=== PATIENT | female | born 1995 | race Caucasian/White ===

== ENCOUNTER 2017-01-19 | Emergency (ER) | payer OTHER ==
[2017-01-19 00:11] VITALS: BP 125/65; PULSE 92; TEMP 98.2; BMI 30.1
[2017-01-19] MEDS ORDERED: IBUPROFEN 400 MG TABLET (FP) PO ONE ×2 (01:50→02:19)
--- NOTE | 2017-01-19 02:00 | PDOC ---
History of Present Illness - General History Source: Patient Exam Limitations: No Limitations - History of Present Illness Initial Comments: 01/19/17 05:03 The patient is a 21 year old female with no significant past medical history who presents to the ED for right ankle swelling and pain s/p mechanical fall on wednesday. Patient reports she was walking when she tripped over a curb, sustaining a small bruise, swelling, and increasing pain to the right ankle. Denies head trauma or LOC. Patient denies loss of sensation or paresthesia of the right ankle/foot. Denies any radiation of the pain. The patient denies fever, chills, cough, SOB, chest pain, and palpitations. The patient denies abdominal pain, nausea, vomiting, and diarrhea. Allergies: NKDA Social History: No alcohol, tobacco, or drug use reported. Past Surgical History: None reported PCP: Dr. Preston Moreira <Brissa Laureano - Last Filed: 01/19/17 05:03> <Dalton Anderson - Last Filed: 01/21/17 07:32> - General Chief Complaint: Injury Stated Complaint: FALL/INJURY Time Seen by Provider: 01/19/17 01:50 Past History <Brissa Laureano - Last Filed: 01/19/17 05:03> - Past Medical History Other medical history: denies - Psycho/Social/Smoking Cessation Hx Suicidal Ideation: No Smoking Status: No Smoking History: Never smoked Number of Cigarettes Smoked Daily: 0 <Dalton Anderson - Last Filed: 01/21/17 07:32> - Past Medical History Allergies/Adverse Reactions: Allergies Allergy/AdvReac Type Severity Reaction Status Date / Time No Known Allergies Allergy Verified 01/19/17 00:10 Home Medications: Ambulatory Orders NK [No Known Home Medication] 01/19/17 Review of Systems - Review of Systems Able to Perform ROS?: Yes Comments:: 01/19/17 05:03 Constitutional - Pt denies Fever, Chills, weakness, HEENT: denies vision changes, sore throat Musculskelatal - +swelling and pain of the right ankle and foot denies back pain skin - denies bruising, erythema, rash neurological: denies headache, numbness, focal weakness, tingling, ataxia, weakness <Brissa Laureano - Last Filed: 01/19/17 05:03> *Physical Exam - Vital Signs Last Vital Signs Temp Pulse Resp BP Pulse Ox 98.2 F 92 H 18 125/65 99 01/19/17 00:08 01/19/17 00:08 01/19/17 00:08 01/19/17 00:08 01/19/17 00:08 - Physical Exam Comments: 01/19/17 05:04 GENERAL: The patient is awake, alert, and fully oriented, Nontoxic - in no acute distress. HEAD: Normocephalic, atraumatic. EYES: extraocular movements intact, sclera anicteric, conjunctiva clear. ENT: Normal voice, Moist mucous membranes. NECK: Normal range of motion, supple without lymphadenopathy, JVD, or masses. EXTREMITIES: Decreased ROM of the right ankle secondary to pain. Diffuse mild tenderness around the right ankle later/medial malleolus and dorsum of right foot. Abrasion at the dorsum of the right foot with surrounding erythema, no warmth, induration, or discharge. No deformity. normal ROM of knee/hips and other extremities. NEUROLOGICAL: No facial assymetry, Normal speech. moving all 4 extremities spontaneously and symmetrically SKIN: Warm, Dry, normal turgor, no rashes noted. <Brissa Laureano - Last Filed: 01/19/17 05:03> - Vital Signs Last Vital Signs Temp Pulse Resp BP Pulse Ox 98.2 F 92 H 18 125/65 99 01/19/17 00:08 01/19/17 00:08 01/19/17 00:08 01/19/17 00:08 01/19/17 00:08 <Dalton Anderson - Last Filed: 01/21/17 07:32> ED Treatment Course - ADDITIONAL ORDERS Additional order review: Laboratory Results 01/19/17 01:50 Urine HCG, Qual Negative - Medications Given in the ED: ED Medications Discontinued Medications Generic Name Dose Route Start Last Admin Trade Name Freq PRN Reason Stop Dose Admin Ibuprofen 400 mg 01/19/17 01:50 01/19/17 02:22 Motrin - PO 01/19/17 01:51 400 mg ONCE ONE Administration <Brissa Laureano - Last Filed: 01/19/17 05:03> - RADIOLOGY Radiology Studies Ordered: Category Date Time Status ANKLE & FOOT-RIGHT* [RAD] Stat Radiology 01/19/17 01:52 Ordered <Dalton Anderson - Last Filed: 01/21/17 07:32> Medical Decision Making - Medical Decision Making 01/19/17 02:00 21y F presnting with R ankle pain suspect sprain, diffuse tenderness will r/o fx with xray will give motrin for pain. A portion of this note was documented by scribe services under my direction. I have reviewed the details of the note, within reason, and agree with the documentation with the following case summary and management plan written by me 01/19/17 02:45 no fx on xray will put in seema wrap RICE therapy motring/tylenol for pain will dc with pmd fu return precautions were discussed I discussed the physical exam findings, ancillary test results and final diagnoses with the patient. I answered all of the patient's questions. The patient was satisfied with the care received and felt comfortable with the discharge plan and treatment plan. The patient will call their primary care physician within 24 hours to arrange follow-up and will return to the Emergency Department with any new, persistent or worsening symptoms. <Dalton Anderson - Last Filed: 01/21/17 07:32> *DC/Admit/Observation/Transfer - Attestations Scribe Attestion: 01/19/17 05:04 Documentation prepared by Brissa Laureano, acting as medical director occupational health for Dalton Anderson MD, /DO. <Brissa Laureano - Last Filed: 01/19/17 05:03> - Discharge Dispostion Admit: No <Dalton Anderson - Last Filed: 01/21/17 07:32> Diagnosis at time of Disposition: Sprained ankle Qualifiers: Encounter type: initial encounter Involved ligament of ankle: unspecified ligament Laterality: left Qualified Code(s): S93.402A - Sprain of unspecified ligament of left ankle, initial encounter - Discharge Dispostion Disposition: HOME Condition at time of disposition: Improved - Referrals Referrals: Preston Moreira [Primary Care Provider] - - Patient Instructions Printed Discharge Instructions: DI for Ankle Sprain Additional Instructions: Return to the emergency department immediately with ANY new, persistent or worsening symptoms. Keep your extremity elevated. Apply ice to reduce swelling. Take ibuprofen for pain. Refrained from physical activity until reassessed. You MUST call and follow up with your doctor in 3-4 days for further evaluation of your symptoms. Results were discussed with you. Please make sure your doctor reviews the results of your emergency evaluation. If you had any xrays during your visit, it was read preliminarily by myself, a Radiologist will review it and if there are any additional findings we will call you. Print Language: [place]
== END 2017-01-19 03:33 | disposition home or self-care (01) ==
LOC: JER
DX: S93.402A Sprain of unspecified ligament of left ankle, initial encounter (principal); W10.1XXA Fall (on)(from) sidewalk curb, initial encounter; Y93.01 Activity, walking, marching and hiking; Y92.480 Sidewalk as the place of occurrence of the external cause
CPT/HCPCS: 73610-TC-RT; 73630-TC-RT; 84703; 99282-25

== ENCOUNTER 2018-07-04 22:24 | Emergency (ER) | payer OTHER ==
[2018-07-04 22:35] VITALS: BP 119/72; PULSE 92; TEMP 98.8; BMI 24.7
[2018-07-05] MEDS ORDERED: SODIUM CHLORIDE 1,000 ML IV STA (02:09)
[2018-07-05] MEDS ORDERED: ACETAMINOPHEN 1000 MG/100 ML VIAL (NON FORMULARY) IVPB ONE (02:09)
--- NOTE | 2018-07-05 02:10 | PDOC ---
History of Present Illness - General Chief Complaint: Pain Stated Complaint: ABDOMINAL PAIN Time Seen by Provider: 07/05/18 01:28 History Source: Patient Exam Limitations: No Limitations - History of Present Illness Initial Comments: 07/05/18 05:51 23 yo F with a hx of gastric sleeve placement (01/2018) presents to the emergency department with LLQ pain that radiates to the RUQ for the past 1.5 weeks. Per the patient, the pain is described as dull, 10/10, without relief and aggravating factors. Denies the following: fevers, nausea, vomiting, chills , dysuria, hematuria, diarrhea, vaginal bleeding/discharge, and hematochezia. Endorses constipation with last full BM was 3 days ago. Past History - Past Medical History Allergies/Adverse Reactions: Allergies Allergy/AdvReac Type Severity Reaction Status Date / Time No Known Allergies Allergy Verified 07/04/18 22:36 Home Medications: Ambulatory Orders NK [No Known Home Medication] 01/19/17 COPD: No - Surgical History Abdominal Surgery: Yes (SLEEVE) - Suicide/Smoking/Psychosocial Hx Smoking Status: No Smoking History: Never smoked Number of Cigarettes Smoked Daily: 0 Review of Systems - Review of Systems Able to Perform ROS?: Yes Constitutional: No: Chills, Diaphoresis, Fever, Weakness HEENTM: No: Eye Pain, Recent change in vision, Ear Pain, Nose Pain, Throat Pain , Mouth Pain Respiratory: No: Cough, Shortness of Breath, Hemoptysis Cardiac (ROS): No: Chest Pain, Lightheadedness, Palpitations, Syncope, Chest Tightness ABD/GI: Yes: Constipated, Abdominal cramping. No: Diarrhea, Difficulty Swallowing, Nausea, Poor Appetite, Poor Fluid Intake, Rectal Bleeding, Vomiting , Indigestion, Tarry Stools : No: Burning, Dysuria, Hematuria, Urgency Musculoskeletal: No: Back Pain, Joint Pain, Neck Pain Integumentary: No: Lesions, Lumps, Rash Neurological: No: Headache, Numbness, Tremors, Ataxia, Dizziness Psychiatric: No: Stressors Endocrine: No: Unexplained Weight Gain Hematologic/Lymphatic: No: Anemia *Physical Exam - Vital Signs Last Vital Signs Temp Pulse Resp BP Pulse Ox 98.8 F 92 H 18 119/72 98 07/04/18 22:32 07/04/18 22:32 07/04/18 22:32 07/04/18 22:32 07/04/18 22:32 - Physical Exam General Appearance: Yes: Nourished, Appropriately Dressed. No: Apparent Distress, Intoxicated HEENT: positive: EOMI, JAG, Normal Voice, Symmetrical, Pharynx Normal, Hearing Grossly Normal. negative: Pale Conjunctivae, Scleral Icterus (R), Scleral Icterus (L), Muffled/Hoarse voice, Pharyngeal Erythema, Tonsillar Exudate, Tonsillar Erythema, Nasal Congestion, Rhinorrhea, Excessive drooling Neck: positive: Trachea midline. negative: Tender, Lymphadenopathy (R), Lymphadenopathy (L) Respiratory/Chest: positive: Lungs Clear, Normal Breath Sounds. negative: Chest Tender, Respiratory Distress, Accessory Muscle Use, Crackles, Rales, Rhonchi, Stridor, Wheezing Cardiovascular: positive: Regular Rhythm, Regular Rate, S1, S2. negative: Systolic Murmur Gastrointestinal/Abdominal: positive: Normal Bowel Sounds, Tender (left upper quadrant, left lower quadrant. negative rebound. negative murphys), Flat, Soft Lymphatic: negative: Adenopathy Musculoskeletal: positive: Normal Inspection. negative: CVA Tenderness, Vertebral Tenderness Extremity: positive: Normal Capillary Refill, Normal Inspection, Normal Range of Motion. negative: Tender Integumentary: positive: Normal Color, Dry, Warm Neurologic: positive: home attendant II-XII NML intact, Fully Oriented, Alert, Normal Mood/ Affect, Normal Response, Motor Strength 5/5. negative: EOM Palsy, Sensory Deficit Moderate Sedation - Procedure Monitoring Vital Signs: Procedure Monitoring Vital Signs Temperature 98.8 F 07/04/18 22:32 Pulse Rate 92 H 07/04/18 22:32 Respiratory Rate 18 07/04/18 22:32 Blood Pressure 119/72 07/04/18 22:32 O2 Sat by Pulse Oximetry (%) 98 07/04/18 22:32 ED Treatment Course - LABORATORY CBC & Chemistry Diagram: 07/05/18 02:48 07/05/18 02:48 - RADIOLOGY Radiology Studies Ordered: Category Date Time Status ABDOMEN & PELVIS CT WITH CONTR [CT] Stat CT Scan 07/05/18 02:09 Ordered Medical Decision Making - Medical Decision Making 23 yo F with a hx of gastric sleeve placement (01/2018) presents to the emergency department with LLQ pain that radiates to the RLQ for the past 1.5 weeks. Initial vitals; Initial Vital Signs Temp Pulse Resp BP Pulse Ox 98.8 F 92 H 18 119/72 98 07/04/18 22:32 07/04/18 22:32 07/04/18 22:32 07/04/18 22:32 07/04/18 22:32 Work up: patient's physical exam had minimal tenderness. patient stated she did not want a pelvic exam. benefits of the exam explained and patient continued to deny. ddx: colitis vs ovarian cyst vs ectopic vs diverticulosis/ diverticulitis vs constipation vs UTI vs nephrolithiasis vs pyelo Laboratory Tests 07/05/18 07/05/18 07/05/18 02:48 02:48 02:48 WBC 7.5 RBC 5.02 Hgb 12.6 Hct 37.4 MCV 74.5 L MCH 25.2 L MCHC 33.8 RDW 14.8 Plt Count 301 MPV 8.3 Absolute Neuts (auto) 5.2 Neutrophils % 70.1 Lymphocytes % 17.7 Monocytes % 9.7 Eosinophils % 1.8 Basophils % 0.7 Nucleated RBC % 0 Sodium 141 Potassium 3.4 L Chloride 109 H Carbon Dioxide 24 Anion Gap 8 BUN 13 Creatinine 0.5 L Creat Clearance w eGFR > 60 Random Glucose 88 Calcium 8.3 L Total Bilirubin 0.4 AST 19 ALT 29 Alkaline Phosphatase 76 Total Protein 6.7 Albumin 3.6 Urine Color Yellow Urine Appearance Clear Urine pH 5.0 Ur Specific [place] 1.027 Urine Protein 1+ H Urine Glucose (UA) Negative Urine Ketones Trace H Urine Blood 1+ H Urine Nitrite Negative Urine Bilirubin Negative Urine Urobilinogen 2.0 H Ur Leukocyte Esterase Negative Urine WBC (Auto) 1 Urine RBC (Auto) 77 Ur Epithelial Cells Rare Urine Bacteria Rare Hyaline Casts 2 Urine Mucus Many Urine HCG, Qual Negative CT abdomen pelvis was significant for left ovarian cyst. patient was given follow up recommendations with OBGYN. at the time of discharge, she had stable vitals and her pain improved significantly. I discussed the physical exam findings, ancillary test results, and final diagnoses with the patient. I answered all of the patients questions to their satisfaction. The patient was satisfied with the care received and felt comfortable with the discussed discharge and treatment plan and accepted it. They agreed to follow up with their primary medical physical physician within 24 -72 hours after discharge for follow up care and management. Dispo: Discharge *DC/Admit/Observation/Transfer Diagnosis at time of Disposition: Left ovarian cyst - Discharge Dispostion Disposition: HOME Condition at time of disposition: Stable Decision to Admit order: No - Referrals Referrals: Preston Moreira [Primary Care Provider] - Christian Álvarez MD [Staff Physician] - - Patient Instructions Printed Discharge Instructions: DI for Ovarian Cyst Additional Instructions: you were seen in the emergency department for the evaluation of your left lower quadrant pain. your labs were within normal limits. your imaging showed a left ovarian cyst. please follow up with your primary medical doctor within 72 hours after discharge for follow up care and management. please follow up with your own OBGYN physician or the one referred to you within 1 week for follow up care and management. please take tylenol as directed on the label when needed for pain. please return to the emergency department if you have worsening symptoms or new concerning symptoms such as change in quality to abdominal pain, uncontrollable nausea and vomiting, and fever/chills. thank you - Post Discharge Activity Forms/Work/School Notes: Back to Work
[2018-07-05] MEDS ORDERED: ACETAMINOPHEN INJECTION 100 ML IVPB ONE (02:21)
[2018-07-05 02:56] LABS: BASO % 0.7 % (0-2.0); EOS % 1.8 % (0-4.5); HEMATOCRIT 37.4 % (32.4-45.2); HEMOGLOBIN 12.6 GM/dL (10.7-15.3); LYMPH % 17.7 % (8-40); MCH 25.2 pg (25.7-33.7); MCHC 33.8 g/dl (32.0-36.0); MEAN CELL VOLUME 74.5 fl (80-96); MEAN PLT VOLUME 8.3 fl (7.5-11.1); MONO % 9.7 % (3.8-10.2); NEUT % 70.1 % (42.8-82.8); PLATELET COUNT 301 K/MM3 (134-434); RBC 5.02 M/mm3 (3.60-5.2); RDW 14.8 % (11.6-15.6); WHITE BLOOD COUNT 7.5 K/mm3 (4.0-10.0)
[2018-07-05 02:59] LABS: URINE APPEARANCE CLEAR; URINE BILIRUBIN NEGATIVE (<2.0 mg/dL); URINE COLOR YELLOW; URINE GLUCOSE (UA) NEGATIVE (NEGATIVE); URINE KETONE TRACE (NEGATIVE); URINE LEUK ESTERASE NEGATIVE (NEGATIVE); URINE NITRITE NEGATIVE (NEGATIVE); URINE PROTEIN 1+ (NEGATIVE)
[2018-07-05 03:00] LABS: HCG,QUALITATIVE URINE Negative
[2018-07-05 03:04] LABS: EPI CELLS RARE /HPF (FEW); URINE BACTERIA RARE /hpf (NONE SEEN); URINE HYALINE CAST 2 /lpf; URINE MUCUS MANY
[2018-07-05 03:21] LABS: ALBUMIN 3.6 g/dl (3.4-5.0); ALK PHOS 76 U/L (45-117); ANION GAP 8 MMOL/L (8-16); BILIRUBIN,TOTAL 0.4 mg/dL (0.2-1); BLOOD UREA NITROGEN 13 mg/dL (7-18); CALCIUM 8.3 mg/dL (8.5-10.1); CHLORIDE 109 mmol/L (98-107); CO2 24 mmol/L (21-32); CREATININE 0.5 mg/dL (0.55-1.3); GLUCOSE,RANDOM 88 mg/dL (74-106); POTASSIUM 3.4 mmol/L (3.5-5.1); SGOT/AST 19 U/L (15-37); SGPT/ALT 29 U/L (13-61); SODIUM 141 mmol/L (136-145); TOT PROT 6.7 g/dl (6.4-8.2)
--- NOTE | 2018-07-05 03:44 | PDOC ---
Attending Attestation - Resident Resident Name: Luisito Young - HPI HPI: 07/05/18 03:41 23 F with h/o gastric sleeve this year presenting to ED with diffuse abdominal pain x 1 week. Pt reports migrating pain from her LLQ to her RUQ. Denies N/V. Denies F/C. Denies diarrhea. Endorses mild chronic constipation, though she states that she has BMs every day. Pt denies vaginal discharge or bleeding. Denies dysuria. States she is not sexually active. - Physicial Exam PE: 07/05/18 03:42 "GENERAL: Awake, alert, and fully oriented, in no acute distress. HEAD: No signs of trauma EYES: PERRLA, EOMI, sclera anicteric, conjunctiva clear ENT: Auricles normal inspection, hearing grossly normal, nares patent, oropharynx clear without exudates. Moist mucosa NECK: Nontender, no stepoffs, Normal ROM, supple, no lymphadenopathy, JVD, or masses LUNGS: Breath sounds equal, clear to auscultation bilaterally. No wheezes, and no crackles HEART: Regular rate and rhythm, normal S1 and S2, no murmurs, rubs or gallops ABDOMEN: + Mild LLQ and LUQ tenderness, no rebound/guarding, nondistended EXTREMITIES: Normal range of motion, no edema. No clubbing or cyanosis. No cords, erythema, or tenderness NEUROLOGICAL: Cranial nerves II through XII intact. 5/5 strength and sensation in all extremities, Normal speech, normal gait, normal cerebellar function SKIN: Warm, Dry, normal turgor, no rashes or lesions noted. PELVIC: Refused by pt - Medical Decision Making 07/05/18 03:43 23 F with LUQ and LLQ pain. Suspect constipation related. Pt with minimally tender exam. Refused pelvic exam but denied any vaginal discharge and states she is not sexually active. - Labs - UA - CTAP to r/o post-op complication given gastric sleeve this year 07/05/18 05:43 Labs wnl UA with + RBCs but pt reports she is on her period CT unremarkable Pt is well appearing, with normal vitals. Clinically stable for DC at this time. I discussed the physical exam findings, ancillary test results and final diagnoses with the patient. I answered all of the patient's questions. The patient was satisfied with the care received and felt comfortable with the discharge plan and treatment plan. The patient agrees to follow up with the primary care physician within 24-72 hours.
== END 2018-07-05 07:03 | disposition home or self-care (01) ==
LOC: JER 22:24
PROC: 3E033NZ Introduction of Analgesics, Hypnotics, Sedatives into Peripheral Vein, Percutaneous Approach (ICD-10-PCS; principal; 2018-07-04)
PROC: 3E0337Z Introduction of Electrolytic and Water Balance Substance into Peripheral Vein, Percutaneous Approach (ICD-10-PCS; 2018-07-04)
DX: N83.202 Unspecified ovarian cyst, left side (principal); Z98.84 Bariatric surgery status
CPT/HCPCS: 36415; 74177-TC; 80053; 81003; 81015; 84703; 85025; 87086; 99282-25; J0131; J7030